=== PATIENT | female | born 1950 | race Caucasian/White ===

== ENCOUNTER → 2017-01-28 | Outpatient (CLI) | payer MEDICARE, OTHER ==
--- NOTE | ~2017-01-28 | CT3 ---
[facility] A Service of [facility] RADIOLOGY TEXT RESULTS PATIENT: CRISTÓBAL FAULKNER LOCATION: [facility] : 50 UNIT #: [id number] AGE: [address]: Alfredo Forrest MD SEX: F ORDER DR: [id number] [facility] [address] [place], [place] [address] [id number] O MR#: [id number] Acc #: [id number] NAME: CRISTÓBAL FAULKNER : 1950 SEX: F STUDY DATE/TIME: 01/28/2017 14:37 UNIT: [facility] ROOM: STUDY DESCRIPTION: CT Abd and Pelv WWo Cont Attending Physician: Alfredo Forrest M.D. Referring Physician: Alfredo Forrest M.D. Ordering Physician: Alfredo Forrest M.D. Primary Care Physician: Generic Doctor Not In System MEDICAL IMAGING REPORT This report is preliminary unless electronic signature is present EXAM CT abdomen and pelvis without and with contrast INDICATION Followup left renal mass. PROCEDURE Unenhanced CT of the abdomen and pelvis. Postcontrast CT abdomen and pelvis with multiphase acquisition through the kidneys. This CT exam was performed with one or more of the following radiation dose reduction techniques: automatic exposure control, adjustment of mA and/or kV according to patient size, and iterative reconstruction. COMPARISON 02/14/2016 performed [facility] FINDINGS ABDOMEN WITHOUT CONTRAST: Included lung bases are predominately clear. Previous cholecystectomy. No radiodense renal calculus. No radiodense ureteral calculus. PELVIS WITHOUT CONTRAST: No radiodense bladder calculus. ABDOMEN WITH CONTRAST: Enhancing mass in the posterior left mid kidney measures 2.2 cm, previously 1.8 cm. No abnormal soft tissue in the left perinephric fat. There is a 1.6 cm cyst in the lower pole of the left kidney. The liver, spleen, adrenal glands, pancreas are unremarkable. Uncomplicated colonic diverticula. Bowel loops are nondilated. No [facility] A Service of [facility] RADIOLOGY TEXT RESULTS PATIENT: CRISTÓBAL FAULKNER LOCATION: [facility] : 50 UNIT #: [id number] AGE: [address]: Alfredo Forrest MD SEX: F ORDER DR: retroperitoneal adenopathy. PELVIS WITH CONTRAST: Previous hysterectomy. No pelvic mass or fluid. No aggressive appearing bone lesion. IMPRESSION 1. Interval increase in size of enhancing lesion in the posterior [id number] left kidney. It now measures 2.2 cm, previously 1.8 cm on the 02/14/2016 outside study. There is no evidence for renal vein involvement or metastatic disease to the abdomen or pelvis. 2. Other findings as detailed above. Dictated by... Martin Lepe M.D. THIS IS AN ELECTRONICALLY VERIFIED REPORT Martin Lepe M.D. at 02/03/2017 8:51 AM Danny TD: 01/31/2017 15:27 JOB #: [id number] MEDICAL IMAGING REPORT Page 1 of 1 COPY
[2017-01-28 17:01] LABS: POC - CREATININE 0.87 mg/dL (0.44-1.03); POC - GFR >60.0 mL/min (>60)
== END | disposition home or self-care (01) ==
LOC: CCAT 13:05
PROVIDERS: Urology
DX: N28.89 Other specified disorders of kidney and ureter (principal)
CPT/HCPCS: 74178; 82565; Q9967